=== PATIENT | male | born 2000 | race Caucasian/White ===

== ENCOUNTER 2018-04-16 23:26 | Emergency (ER) | payer OTHER, SELFPAY ==
[2018-04-16 23:32] VITALS: BP 125/79; PULSE 98; RESP 20; TEMP 37.5; O2SAT 99; BMI 20.2
[2018-04-17] MEDS: ONDANSETRON 4 MG/2 ML INJ IV (00:42)
[2018-04-17] MEDS: SODIUM CHLORIDE 0.9% 1,000 ML 1000 ML IV (00:42)
[2018-04-17 00:51] LABS: Add Manual Diff / Slide Review NO; Eosinophils Percent Auto 2.4 % (2-4); Hematocrit 42.6 % (41-53); Hemoglobin 14.6 g/dL (13.5-17.5); Lymphocytes Percent Auto 25.6 % (25-40); Mean Corpuscular HGB Conc 34.2 % (30-36); Mean Corpuscular Hemoglobin 30.3 PG (26-34); Mean Corpuscular Volume 88.6 fL (80-100); Monocytes Percent Auto 12.4 % (3-14); Neutrophils Absolute Auto 4100 /uL (3000-5900); Neutrophils Percent Auto 58.6 % (50-75); Platelet Count 234 X10^3/uL (150-400); Red Blood Cell Count 4.81 X10^6/uL (4.5-5.9); Red Cell Distribution Width 12.8 % (11.6-14.8)
[2018-04-17 00:55] LABS: Blood Urea Nitrogen 8 mg/dL (9-20); Calcium 9.5 mg/dL (8.4-10.2); Carbon Dioxide 29 mmol/L (22-32); Chloride 100 mmol/L (98-107); Estimated Glomerular Filt Rate > 60.0 mL/min (>60); Glucose 91 mg/dL (70-100); HEMOLYSIS < 15 (0-50); Potassium 3.8 mmol/L (3.4-5.1); Sodium 141 mmol/L (137-145)
[2018-04-17] MEDS: ONDANSETRON 4 MG ODT PREPACK 1 BOTTLE MISC (02:11)
[2018-04-17 02:20] VITALS: BP 100/63; PULSE 72; RESP 16; TEMP 36.9; O2SAT 99
--- NOTE | 2018-04-17 07:28 | ED_ITS ---
HPI - Nausea/Vomiting/Diarrhea General Chief complaint: Nausea/Vomiting/Diarrhea Stated complaint: right side pain, dizziness, confused Time Seen by Provider: 04/16/18 23:53 Source: patient and family Mode of arrival: ambulatory Limitations: no limitations History of Present Illness HPI Narrative: 18M, nonsmoker, otherwise healthy patient presents with vague complaints of generally feeling unwell for the past few hours. He states he feels a bit nauseated and weak and complains of some right lower quadrant pain that seems to be worse when he moves. He denies any dysuria, frequency or urgency. He denies any history of the same. He denies any exposure to ill persons or bad food. He routinely smokes marijuana and had some tonight but states it was from the same supply as normal and that is likely not contributing to how he feels. He admits to a low-grade fever MD complaint: nausea and abdominal pain Onset (ago): minute(s) Description of Diarrhea: none Associated Abdominal Pain: Yes Location of pain: RLQ Radiation: diffuse Severity: mild Quality: cramping and aching Relieving factors: none Exacerbating factors: none Associated symptoms: fever/chills, loss of appetite and nausea/vomiting Related Data Allergies Allergy/AdvReac Type Severity Reaction Status Date / Time No Known Drug Allergies Allergy Verified 04/16/18 23:38 Review of Systems Review of Systems All systems reviewed & are unremarkable except as noted in HPI and below Constitutional Denies chills, Reports fever(s), Denies lethargy and Denies weakness Eyes Denies change in vision, Denies eye discharge, Denies irritation and Denies loss of vision ENT Ears, Nose, Mouth, and Throat: Denies change in voice, Denies neck pain and Denies sore throat Cardiovascular Denies chest pain, Denies irregular heart rhythm, Denies lightheadedness, Denies palpitations, Denies dyspnea, Denies dyspnea on exertion and Denies orthopnea Respiratory Denies cough, Denies dyspnea, Denies dyspnea on exertion and Denies wheezing Gastrointestinal Gastrointestinal: Reports abdominal pain, Denies change in bowel habits, Denies diarrhea, Reports nausea and Denies vomiting Genitourinary Denies hematuria, Denies flank pain, Denies urinary incontinence and Denies urinary urgency Musculoskeletal Denies neck pain Integumentary/Breasts Denies pruritus, Denies erythema, Denies rash and Denies wounds Neurologic Denies confusion, Denies loss of vision and Denies weakness Psychiatric Denies anxiety, Denies confusion, Denies depression, Denies homicidal ideation and Denies suicidal ideation Endocrine Denies palpitations Hematologic/Lymphatic Denies easy bruising Allergic/Immunologic Denies wheezing [facility] Social History Smoking Status: Former smoker Exam Narrative Exam Narrative: GENERAL: 18-year-old male in mild distress HEAD: Atraumatic. Normocephalic. No temporal or scalp tenderness. EYES: Pupils equal round and reactive. Extraocular motions intact. No scleral icterus. No injection or drainage. ENT: Nose without bleeding, purulent drainage or septal hematoma. Throat without erythema, tonsillar hypertrophy or exudate. Uvula midline. Airway patent. NECK: Trachea midline. No JVD or lymphadenopathy. Supple, nontender, no meningeal signs. CARDIOVASCULAR: Regular rate and rhythm without workmurmurs, gallops, or rubs. RESPIRATORY: Clear to auscultation. Breath sounds equal bilaterally. No wheezes , rales, or rhonchi. GASTROINTESTINAL: Abdomen soft, mild tenderness without rebound in right lower quadrant, nondistended. No hepato-splenomegaly, or palpable masses. Negative Rovsing's, obturator or psoas sign EXTREMITIES: No clubbing, cyanosis, or edema. No joint tenderness, effusion, or edema noted. BACK: Nontender without deformity or crepitance. No flank tenderness. NEURO: AOx3. SKIN: No rash or erythema. Initial Vital Signs Initial Vital Signs: Vital Signs Temperature 99.5 F 04/16/18 23:32 Pulse Rate 98 H 04/16/18 23:32 Respiratory Rate 20 04/16/18 23:32 Blood Pressure 125/79 04/16/18 23:32 Pulse Oximetry 99 04/16/18 23:32 Course Orders Ordered: ED Orders 04/17/18 00:42 Basic Metabolic Panel Stat Complete Blood Count AUTO DIFF Stat Discontinued Medications Sodium Chloride (Normal Saline 0.9%) 1,000 mls @ 1,000 mls/hr IV BOLUS ONE Stop: 04/17/18 01:13 Last Infusion: 04/17/18 02:05 Dose: 0 mls/hr Admin: 04/17/18 00:42 Dose: 1,000 mls/hr Ondansetron HCl (Zofran) 4 mg IV Q4HR PRN PRN Reason: Nausea And Vomiting Last Admin: 04/17/18 00:42 Dose: 4 mg Ondansetron HCl (Zofran Odt Prepack) 1 bottle MISC SEEINSTR ONE Stop: 04/17/18 02:01 Last Admin: 04/17/18 02:11 Dose: 1 bottle Vital Signs - 8 hr 04/16/18 23:32 04/17/18 02:20 Temperature 99.5 F 98.4 F Pulse Rate 98 H 72 Respiratory Rate 20 16 Blood Pressure 125/79 100/63 Pulse Oximetry 99 99 MDM - Nausea/Vomiting/Diarrhea Medical Records Attestation: I reviewed the patient's medical records. Lab Data Attestation: I reviewed the patient's lab results. Result diagrams: 04/17/18 00:42 04/17/18 00:42 Lab Results 04/17/18 04/17/18 Range/Units 00:42 00:42 WBC 7.0 (4.5-11.0) X10^3/uL RBC 4.81 (4.5-5.9) X10^6/uL Hgb 14.6 (13.5-17.5) g/dL Hct 42.6 (41-53) % MCV 88.6 (80-100) fL MCH 30.3 (26-34) PG MCHC 34.2 (30-36) % RDW 12.8 (11.6-14.8) % Plt Count 234 (150-400) X10^3/uL Neut % (Auto) 58.6 (50-75) % Lymph % (Auto) 25.6 (25-40) % [place] % (Auto) 12.4 (3-14) % Eos % (Auto) 2.4 (2-4) % Baso % (Auto) 1.0 (0-2) % Neut # (Auto) 4100 (7419-4849) /uL Sodium 141 (137-145) mmol/L Potassium 3.8 (3.4-5.1) mmol/L Chloride 100 (98-107) mmol/L Carbon Dioxide 29 (22-32) mmol/L BUN 8 L (9-20) mg/dL Creatinine 0.80 (0.66-1.25) mg/dL Estimated GFR > 60.0 (>60) mL/min BUN/Creatinine Ratio 10.0 (6-22) Glucose 91 (70-100) mg/dL Calcium 9.5 (8.4-10.2) mg/dL Urine Dip Bedside Urine Glucose Negative Bedside Urine Bilirubin - Negative Bedside Urine Ketone - Negative Urine Specific [place] 1.020 Bedside Urine Occult Blood - Negative Bedside Urine pH 6.5 Bedside Urine Protein - Negative Bedside Urine Urobilinogen - Negative Bedside Urine Nitrite - Negative Bedside Urine Leukocytes - Negative Esterase MDM Narrative Medical decision making narrative: 18-year-old male with the extensive bedside discussion with he and parents about the possibility of a very early appendicitis but only 4 hr in a lack of elevated white blood cell count and minor findings on exam it is most reasonable to repeat abdominal exam in 12-24 hours. Patient given return precautions and is verbalized his understanding Discharge Plan Departure Patient Disposition: Home Clinical Impression: Nausea, Abdominal pain Discharge Date/Time: 04/17/18 02:21 Interventions: ED Discharge Assessment Last Done: 04/17/18 02:20 Instructions: Acute Abdominal Pain Activity Restrictions/Additional Instructions: *You have been diagnosed with [ acute abdominal pain with nausea ] *What to do: *Take medications as directed *Follow up with your primary care provider, walk in clinic, or return to the Emergency Department for a re-evaluation in 24 hours *Return to ER immediately if you should have any new, worsening or concerning symptoms, such as [ worsening or more persistent pain, elevated fever over 101 F, persistent vomiting, or other bothersome symptoms]
== END 2018-04-17 02:21 | disposition home or self-care (01) ==
PROVIDERS: Emergency Provider Emergency Medicine
DX: R10.9 Unspecified abdominal pain (principal); R11.0 Nausea
CPT/HCPCS: 36591; 80048; 81003; 85025; 96361; 96374; 99283; 99284; J2405

== ENCOUNTER 2019-04-09 21:39 | Emergency (ER) | payer OTHER, SELFPAY ==
[2019-04-09 21:50] VITALS: BP 131/73; PULSE 79; RESP 16; TEMP 37.1; O2SAT 100
--- NOTE | 2019-04-09 22:51 | ED.WOUNDLAC ---
HPI - Wound/Laceration General Chief Complaint: Wound/Laceration Stated Complaint: LACERATION OF RIGHT SIDE OF CHEST Time Seen by Provider: 04/09/19 21:46 Source: patient Mode of arrival: Ambulatory Limitations: no limitations History of Present Illness HPI narrative: 19-year-old male nonsmoker with noncontributory medical history presents with his mother and a chief complaint of a laceration on the right side of his chest after bumping into some david yesterday evening. He cleaned it immediately is kept a dressing on it. His tetanus will need to be updated. He denies any drainage. He denies other injury is otherwise well and free of complaint Onset (ago): hour(s) Location: chest Body four view annotation: 1. Place: work Patient tetanus UTD: No Context: accidental Associated symptoms: pain Treatments prior to arrival: bandage Related Data Allergies Allergy/AdvReac Type Severity Reaction Status Date / Time No Known Drug Allergies Allergy Verified 04/16/18 23:38 Review of Systems Constitutional Constitutional: Denies chills, Denies fatigue, Denies fever(s), Denies frequent falls, Denies lethargy and Denies weakness Eyes Eyes: Denies change in vision, Denies eye discharge, Denies irritation and Denies loss of vision ENT Ears, Nose, Mouth, and Throat: Denies change in voice, Denies dizziness, Denies neck pain, Denies sore throat and Denies throat swelling Cardiovascular Cardiovascular: Denies chest pain, Denies irregular heart rhythm, Denies lightheadedness, Denies palpitations, Denies dyspnea, Denies dyspnea on exertion and Denies orthopnea Respiratory Respiratory: Denies cough, Denies dyspnea, Denies dyspnea on exertion and Denies wheezing Gastrointestinal Gastrointestinal: Denies abdominal pain, Denies change in bowel habits, Denies diarrhea, Denies nausea and Denies vomiting Genitourinary Genitourinary: Denies hematuria, Denies flank pain, Denies urinary incontinence and Denies urinary urgency Musculoskeletal Musculoskeletal: Denies back pain, Denies muscle weakness, Denies neck pain, Denies numbness and Denies tingling Integumentary/Breasts Skin/Breast: Denies pruritus, Denies erythema, Denies rash and Reports wounds Neurologic Neurologic: Denies behavioral changes, Denies confusion, Denies dizziness, Denies frequent falls, Denies loss of vision, Denies numbness, Denies tingling and Denies weakness Psychiatric Psychiatric: Denies anxiety, Denies behavioral changes, Denies confusion, Denies depression, Denies homicidal ideation and Denies suicidal ideation Endocrine Endocrine: Denies fatigue, Denies flushing and Denies palpitations Hematologic/Lymphatic Hematologic/Lymphatic: Denies easy bruising Allergic/Immunologic Allergic/Immunologic: Denies urticaria, Denies throat swelling and Denies wheezing Patient History Social History Smoking Status: Former smoker alcohol intake frequency: 3 or more drinks per day Substance Use Type: marijuana Exam Narrative Exam Narrative: GEN: AOx3 and in mild distress EYES: Pupils are equal, round, and reactive to light and accommodation. Extraoccular muscles are intact bilaterally. There is no subconjunctival hemorrhage or exudate. CHEST: Lungs are clear to auscultation bilaterally and free of wheezes, rales, or rhonchi. Heart rate is regular rhythm, there are no murmurs, clicks, rubs, or gallops. There is no chest wall tenderness. ABD: Abdomen is soft and nontender. There is no guarding or rebound. Bowel sounds are normal in all 4 quadrants. There is no mass or organomegaly. EXT: Full painless ROM of all extremities with no loss of sensation or strength. SKIN: 3 cm superficial laceration on the right anterior chest, easily closed with sutures. No active bleeding Warm, pink, and dry. No erythema or rash Initial Vital Signs Initial Vital Signs: Vital Signs Temperature 98.7 F 04/09/19 21:50 Pulse Rate 79 04/09/19 21:50 Respiratory Rate 16 04/09/19 21:50 Blood Pressure 131/73 04/09/19 21:50 Pulse Oximetry 100 04/09/19 21:50 Procedures Laceration Repair Laceration 1: Site: chest Side (If applicable): right Size (cm): 3 Description: linear Depth: simple, single layer Local Anesthetic: lidocaine 1% Pre-repair: wound explored Skin layer closed with: nylon Size (cm): 5-0 Number of sutures: 7 Technique: simple, interrupted Course Orders Ordered: Discontinued Medications Diphtheria/Tetanus/Acell Pertussis (Adacel) 0.5 ml IM .ONCE ONE Stop: 04/09/19 23:07 Last Admin: 04/09/19 23:12 Dose: 0.5 ml Documented by: SONIA Lidocaine/Sodium Bicarbonate (Buffered Lidocaine 10 Ml Syr) 10 ml INJ NOW ONE Stop: 04/09/19 22:59 Vital Signs Vital signs: Vital Signs - 8 hr 04/09/19 21:50 Temperature 98.7 F Pulse Rate 79 Respiratory Rate 16 Blood Pressure 131/73 Pulse Oximetry 100 Discharge Plan Departure Patient Disposition: Home Clinical Impression: Laceration Discharge Date/Time: 04/09/19 23:50 Instructions: DI for Laceration Repair Activity Restrictions/Additional Instructions: *You have been diagnosed with [ chest laceration ] *What to do: *Take medications as directed *Follow up with your primary care provider in 2-3 days, call for an appointment. Let them know you were seen in the Emergency Department and that we ask that you be seen in follow up *Return to ER if you should have any new, worsening or concerning symptoms
[2019-04-09] MEDS: TET,DIPH,PERTUSS(ACELL),VAC/PF 0.5 ML SYRINGE IM (23:12)
== END 2019-04-09 23:50 | disposition home or self-care (01) ==
PROVIDERS: Emergency Provider Emergency Medicine
DX: S21.111A Laceration without foreign body of right front wall of thorax without penetration into thoracic cavity, initial encounter (principal); Z23 Encounter for immunization; Y99.0 Civilian activity done for income or pay
CPT/HCPCS: 12002; 90471; 99283; 90715

== ENCOUNTER 2019-11-18 13:16 | Emergency (ER) | payer OTHER, SELFPAY ==
[2019-11-18 13:21] VITALS: BP 142/99; PULSE 77; RESP 14; TEMP 36.6; O2SAT 99
--- NOTE | 2019-11-18 14:47 | ED.WOUNDLAC ---
HPI - Wound/Laceration <Marianne Chun PA-C - Last Filed: 11/18/19 20:29> General Chief Complaint: Wound/Laceration Stated Complaint: laceration on back of head Time Seen by Provider: 11/18/19 13:27 Source: patient Mode of arrival: Ambulatory History of Present Illness HPI narrative: This is a 19-year-old male who presents to the emergency department complaining of a cut to the top and back of his head that he sustained last night around 1 in the morning at home when he stood up quickly and hit the back of his head on the corner of a cabinet. He did lose consciousness. Says that it bled a fair amount but they were able to get it to stop and he went to sleep, and in the morning he showered but he did not wash it or clean it at the time that it happened. Says he has a mild headache that he woke up with this morning but he also notes he was drinking a fair amount last night so he thinks he may just have a hangover. No other injuries, this is an isolated complaint. Related Data Allergies Allergy/AdvReac Type Severity Reaction Status Date / Time No Known Drug Allergies Allergy Verified 04/16/18 23:38 Review of Systems <LUCI Frye Last Filed: 11/18/19 20:29> Review of Systems Narrative: GENERAL: Denies chills, fatigue, malaise, fever, sweats. HEENT: Denies sinus pain, ear pain, sore throat, difficulty swallowing, dizziness. RESPIRATORY: Denies dyspnea, cough, wheezing, hemoptysis, sputum. CARDIOVASCULAR: Denies chest pain, palpitations, orthopnea, edema, GASTROINTESTINAL: Denies nausea, vomiting, abdominal pain, diarrhea, constipation, melena. : Denies dysuria, frequency, incontinence, hematuria, urinary retention. MUSCULOSKELETAL: denies weakness, joint pain, or bony pain SKIN: Positive for laceration on the top left of his scalp. Denies any other rash, skin lesions, or other NEUROLOGIC: Denies weakness, headache, numbness, change in speech, confusion, seizures, incoordination. PSYCHIATRIC: No concerning psychosocial issues. 12 point review of systems is negative except for those stated above Patient History <Marianne Chun PA-C - Last Filed: 11/18/19 20:29> Social History Smoking Status: Former smoker Smoking Status: Former smoker alcohol intake frequency: 3 or more drinks per day Substance Use Type: marijuana Exam <Marianne Chun PA-C - Last Filed: 11/18/19 20:29> Narrative Exam Narrative: GENERAL: 19 year old patient appears stated age. Well-nourished, well-developed patient, in mild distress. HEAD: Atraumatic. Normocephalic. EYES: Pupils equal round and reactive. Extraocular motions intact. No scleral icterus. No injection or drainage. ENT: Nose without bleeding, purulent drainage. Airway patent. NECK: Trachea midline. Non tender CARDIOVASCULAR: Regular rate and rhythm without murmurs, gallops, or rubs. RESPIRATORY: Clear to auscultation. Breath sounds equal bilaterally. No wheezes, rales, or rhonchi. EXTREMITIES: No edema or joint tenderness. BACK: Nontender without deformity or crepitance. No flank tenderness. NEURO: AOx3. SKIN: No rash or erythema of visible areas Initial Vital Signs Initial Vital Signs: Vital Signs Temperature 97.8 F 11/18/19 13:21 Pulse Rate 77 11/18/19 13:21 Respiratory Rate 14 11/18/19 13:21 Blood Pressure 142/99 H 11/18/19 13:21 Pulse Oximetry 99 11/18/19 13:21 <Abril Dumont DO - Last Filed: 11/20/19 07:40> Initial Vital Signs Initial Vital Signs: Vital Signs Temperature 97.8 F 11/18/19 13:21 Pulse Rate 77 11/18/19 13:21 Respiratory Rate 14 11/18/19 13:21 Blood Pressure 142/99 H 11/18/19 13:21 Pulse Oximetry 99 11/18/19 13:21 Procedures <LUCI Frye Last Filed: 11/18/19 20:29> Laceration Repair Laceration 1: Site: scalp (Left superior posterior) Side (If applicable): left Size (cm): 1 Description: stellate Depth: simple, single layer (dermabond) Pre-repair: irrigated extensively and deep structures intact Skin layer closed with: dermabond Course <LUCI Frye Last Filed: 11/18/19 20:29> Vital Signs Vital signs: Vital Signs - 8 hr 11/18/19 13:21 11/18/19 14:57 Temperature 97.8 F Pulse Rate 77 77 Respiratory Rate 14 Blood Pressure 142/99 H 142/87 H Pulse Oximetry 99 97 <Abril Dumont DO - Last Filed: 11/20/19 07:40> Vital Signs Vital signs: Vital Signs - 8 hr 11/18/19 13:21 11/18/19 14:57 Temperature 97.8 F Pulse Rate 77 77 Respiratory Rate 14 Blood Pressure 142/99 H 142/87 H Pulse Oximetry 99 97 MDM - Wound/Laceration <Marianne Chun PA-C - Last Filed: 11/18/19 20:29> Differential Diagnosis Differential diagnosis: Likely laceration and other (nerve injury, vascular injury, closed head injury) Medical Records Attestation: I reviewed the patient's medical records. MDM Narrative Medical decision making narrative: This is a well-appearing 19-year-old who presents with complaint of a cut to the top of the back of his head sustained in late last night/early this morning when he stood up too quickly underneath the corner of a cabinet--bleeding controlled. Differential diagnoses considered include laceration, blood loss, closed head injury, concussion A low suspicion for a concussion or closed head injury and imaging is not pursued. Wound is irrigated and closed with Dermabond. Discussed Primary care follow-up emergency return precautions, all questions answered. Discharge Plan Departure Patient Disposition: Home Clinical Impression: Scalp laceration Qualifiers: Encounter type: initial encounter Qualified Code(s): S01.01XA - Laceration without foreign body of scalp, initial encounter Discharge Date/Time: 11/18/19 14:58 Instructions: How to Care for a Laceration After Repair, DI for Laceration Repair Activity Restrictions/Additional Instructions: You for letting us to be part of your care in the emergency department today. There is no evidence of an emergent or life threatening illness at this time, but follow up with your doctor in 1-2 days is recommended nonetheless to continue to rule out serious underlying causes of your symptoms. Please call the office for an appointment. Please return to the Emergency Department for any worsening or persistent symptoms. Please take medications as directed. As we discussed please do not submerge your head in water for at least the next 48 hours, you may shower but do try to keep the area dry as much as possible for the next 48 hours and do not scrub it for the next few weeks the skin glue that was used on her scalp will gradually flake off on its own. You may care for the area with a bandage if you like or you may leave it open to the air I recommend covering it with for the next few days at least at night when her sleeping. If you do develop vision changes headache, dizziness, lightheadedness, or any other symptoms of concern to you please do not hesitate to seek medical care. I have referred you to [facility] if you need to establish a primary care provider they can help you with this. I do recommend that you follow-up and have this reexamined. Referrals: [facility] [Outside] <Abril Dumont, - Last Filed: 11/20/19 07:40> Cosign ED Attending Shellyature Attestation: I was immediately available in the department for consultation. Documentation has been reviewed. I agree with assessment and plan.
[2019-11-18 14:57] VITALS: BP 142/87; PULSE 77; O2SAT 97
== END 2019-11-18 14:58 | disposition home or self-care (01) ==
PROVIDERS: Emergency Provider Student in an Organized Health Care Education/Training Program
DX: S01.01XA Laceration without foreign body of scalp, initial encounter (principal); W22.8XXA Striking against or struck by other objects, initial encounter
CPT/HCPCS: 99282

== ENCOUNTER 2020-02-03 22:33 | Emergency (ER) | payer OTHER, SELFPAY ==
[2020-02-03 22:42] VITALS: BP 137/96; PULSE 88; RESP 16; TEMP 36.8; O2SAT 99; BMI 21.7
--- NOTE | 2020-02-03 22:52 | DI.RAD.S_ITS ---
PROCEDURE: XR FOOT LT MIN 3V INDICATIONS: pain, swelling TECHNIQUE: 3 views of the foot were acquired. COMPARISON: None. FINDINGS: Bones: No fracture. Dorsal soft tissue swelling. Presumed bone island projects in the base of the 1st metatarsal. IMPRESSION: No fracture. If the patient's symptoms do not improve recommend followup radiographs in 10 days to assess for healing sclerosis/occult injury. Dictated by: Carlos Hogan M.D. on 02/04/2020 at 8:34 Approved by: Carlos Hogan M.D. on 02/04/2020 at 8:48
--- NOTE | 2020-02-03 23:30 | ED.LOWEXIN ---
HPI - Extremity Injury (Lower) General Chief Complaint: Extremity Injury, Lower Stated Complaint: thinks broke big toe of left foot Time Seen by Provider: 02/03/20 22:42 Source: patient Mode of arrival: Ambulatory Limitations: no limitations History of Present Illness HPI Narrative: 19-year-old male here for evaluation of injuries that he sustained to his left foot/great toe. He states this occurred the other day as he was going up a flight of stairs. Had bruising and pain worsening since then. Has been ambulatory. No prior injuries. Has not tried anything for symptoms prior to arrival. Related Data Allergies Allergy/AdvReac Type Severity Reaction Status Date / Time No Known Drug Allergies Allergy Verified 02/03/20 22:50 Review of Systems Constitutional Constitutional: Denies frequent falls and Denies headache(s) ENT Ears, Nose, Mouth, and Throat: Denies vertigo, Denies dizziness and Denies headache(s) Musculoskeletal Comments: Pain and bruising left foot/toe Integumentary/Breasts Comments: Bruising to left foot/toe Neurologic Neurologic: Denies vertigo, Denies dizziness, Denies frequent falls and Denies headache(s) Hematologic/Lymphatic Hematologic/Lymphatic: Denies easy bleeding and Denies easy bruising Patient History Medical History Healthy adult (Acute) Social History Smoking Status: Former smoker Smoking Status: Former smoker alcohol intake frequency: a few times a week Substance Use Type: marijuana Exam Initial Vital Signs Initial Vital Signs: Vital Signs Temperature 98.3 F 02/03/20 22:42 Pulse Rate 88 02/03/20 22:42 Respiratory Rate 16 02/03/20 22:42 Blood Pressure 137/96 H 02/03/20 22:42 Pulse Oximetry 99 02/03/20 22:42 Const General: cooperative and comfortable Limitations: mental status not altered HENSC Head: normal to inspection and normocephalic Cardio Pulses: dorsalis pedis present on the right Skin Other: Bruising located on the dorsum of the left foot distal and over the left great toe. Extrem Other: Tenderness to palpation over the left great toe on the dorsum the left foot. Left ankle unremarkable. Course Orders Ordered: ED Orders 02/03/20 22:52 XR foot LT min 3V Stat Vital Signs Vital signs: Vital Signs - 8 hr 02/03/20 22:42 Temperature 98.3 F Pulse Rate 88 Respiratory Rate 16 Blood Pressure 137/96 H Pulse Oximetry 99 MDM - Extremity Injury (Lower) Imaging Data Extremity x-ray #1: Attestation: I personally reviewed and interpreted this imaging study as follows: My Impression: No fractures or dislocations MDM Narrative Medical decision making narrative: Neurovascularly intact, no fractures noted on the x-rays. Discussed these results with the patient. Discussed rice and elevation. He expressed understanding and agreement. Discharge Plan Departure Patient Disposition: Home Clinical Impression: Contusion of foot, right Instructions: How To Perform RICE (Rest, Ice, Compress, Elevate) Activity Restrictions/Additional Instructions: Keep your foot elevated and ice over the area. You have no restrictions on your activities.
== END 2020-02-03 23:39 | disposition home or self-care (01) ==
PROVIDERS: Emergency Provider Emergency Medicine
DX: S90.31XA Contusion of right foot, initial encounter (principal)
CPT/HCPCS: 73630; 99283

== ENCOUNTER 2022-10-27 11:06 | Emergency (ER) | payer OTHER, SELFPAY ==
[2022-10-27 11:17] VITALS: BP 131/94; PULSE 70; RESP 16; TEMP 37; O2SAT 97; BMI 20.9
--- NOTE | 2022-10-27 12:00 | DI.CT.S_ITS ---
PROCEDURE: CT HEAD/BRAIN WO CON INDICATIONS: headache x 4 days, no trauma or h/o HAs TECHNIQUE: Noncontrast 4.5 mm thick angled axial sections acquired from the foramen magnum to the vertex, with coronal and sagittal reformats. For radiation dose reduction, the following was used: automated exposure control, adjustment of mA and/or kV according to patient size. COMPARISON: None. FINDINGS: Image quality: Excellent. CSF spaces: Basal cisterns are patent. No extra-axial fluid collections. Ventricles are normal in size and shape. Brain: No midline shift. No intracranial masses or hemorrhage. Garrett-white matter interface is normal. Skull and face: Calvarium and visualized facial bones are intact, without suspicious lesions. Sinuses: Moderate mucosal thickening can be seen throughout the paranasal sinuses. No abnormal fluid is seen within the mastoid air cells. IMPRESSION: No significant intracranial abnormality is identified on this noncontrast head CT. No acute intracranial hemorrhage is seen. Extensive paranasal sinus disease can be seen. Dictated by: Lino Rosales M.D. on 10/27/2022 at 12:01 Approved by: Lino Rosales M.D. on 10/27/2022 at 12:02
--- NOTE | 2022-10-27 12:19 | ED_ITS ---
HPI - Headache General Chief Complaint: Headache Stated Complaint: headache for 5 days, nausea Time Seen by Provider: 10/27/22 11:32 Mode of arrival: Ambulatory History of Present Illness HPI Narrative: Patient here for complaints of headache that is right right orbital and constant for the past 5 days. Has had nausea but no vomiting. Has had light and sound sensitivity. No prior history of migraine headaches. No relief with Tylenol or ibuprofen at home. No known injury. No recent illness. No neck pain. No personal history of migraine headaches or in the family or any brain tumors or brain aneurysms. Patient is in no distress. Denies any watering of the eye. Has had blurry vision but no double vision. Patient states headache started slowly. Not acute sudden onset. Not thunderclap onset. 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 HEENT: negative sinus pain, ear pain, sore throat RESPIRATORY: negative dyspnea, cough CARDIOVASCULAR: negative chest pain, palpitations GASTROINTESTINAL: Positive nausea, negative vomiting, abdominal pain : negative dysuria, frequency, hematuria MUSCULOSKELETAL: negative muscle or bony pain SKIN: negative rash, skin lesions NEUROLOGIC: negative weakness, numbness, positive headache, positive blurry vision ROS Unobtainable: All systems reviewed & are unremarkable except as noted in HPI and below Patient History Medical History (Updated 10/27/22 @ 13:06 by Ranjith Bennett MD) Healthy adult Social History Smoking Status: Former smoker Smoking Status: Former smoker alcohol intake frequency: a few times a week Substance Use Type: does not use Exam Narrative Exam Narrative: GENERAL: in no distress, not toxic not dyspneic HEAD: Normocephalic. EYES: Pupils equal round ENT: Mucous membranes moist. NECK: Trachea midline. CARDIOVASCULAR: Regular rate and rhythm without murmurs RESPIRATORY: Clear to auscultation. Breath sounds equal bilaterally. No wheezes, rales, or rhonchi. GASTROINTESTINAL: Abdomen soft, non-tender EXTREMITIES: No gross deformities. BACK: No flank tenderness. NEURO: AOx4. Clear speech no facial droop light touch intact to bilateral face and hands with strong equal cloth boil off machine operator. Steady self gait no ataxia. No foot drop. Strong bilateral cloth boil off machine operator and patellar reflexes and ankle flexion and extension. Negative pronator drift SKIN: Warm and dry PSYCH: Not anxious, is cooperative Initial Vital Signs Initial Vital Signs: Vital Signs Temperature 98.6 F 10/27/22 11:17 Pulse Rate 70 10/27/22 11:17 Respiratory Rate 16 10/27/22 11:17 Blood Pressure 131/94 H 10/27/22 11:17 Pulse Oximetry 97 10/27/22 11:17 Oxygen Delivery Method Room Air 10/27/22 11:17 Course Orders Ordered: Discontinued Medications Dexamethasone (Dexamethasone 10 Mg/Ml Vial) 10 mg IV NOW ONE Stop: 10/27/22 12:00 Last Admin: 10/27/22 12:03 Dose: Not Given Documented By: ROBERTO Diphenhydramine HCl (Diphenhydramine 50 Mg/Ml Vial) 25 mg IV NOW ONE Stop: 10/27/22 12:00 Last Admin: 10/27/22 12:03 Dose: Not Given Documented By: ROBERTO Sodium Chloride (Normal Saline 0.9%) 1,000 mls @ 1,000 mls/hr IV BOLUS ONE Stop: 10/27/22 12:58 Last Admin: 10/27/22 12:04 Dose: Not Given Documented By: ROBERTO Metoclopramide HCl (Metoclopramide 10 Mg/2 Ml Inj) 10 mg IV NOW ONE Stop: 10/27/22 12:02 Last Admin: 10/27/22 12:04 Dose: Not Given Documented By: ROBERTO Vital Signs Vital signs: Vital Signs - 8 hr 10/27/22 11:17 Temperature 98.6 F Pulse Rate 70 Respiratory Rate 16 Blood Pressure 131/94 H Pulse Oximetry 97 Oxygen Delivery Method Room Air MDM - Headache Imaging Data CT scan - head: Radiologist's Impression: [address] [address] [address] Scan Report Signed Patient: Serge Hull I MR#: [id number] : 2000 Acct:[id number] Age/Sex: 22 / M Date of Service: 10/27/22 Loc: ED Accession Number: [id number] ?? Procedure: CT head/brain wo con Ordering Provider: Ranjith Bennett MD PROCEDURE:? CT HEAD/BRAIN WO CON ? INDICATIONS:? headache x 4 days, no trauma or h/o HAs ? TECHNIQUE:? Noncontrast 4.5 mm thick angled axial sections acquired from the foramen magnum to the vertex, with coronal and sagittal reformats.? For radiation dose reduction, the following was used:? automated exposure control, adjustment of mA and/or kV according to patient size.? ? COMPARISON:? None. ? FINDINGS:? Image quality:? Excellent.? ? CSF spaces:? Basal cisterns are patent.? No extra-axial fluid collections.? Ventricles are normal in size and shape.? ? Brain:? No midline shift.? No intracranial masses or hemorrhage.? Garrett-white matter interface is normal.? ? Skull and face:? Calvarium and visualized facial bones are intact, without suspicious lesions.? ? Sinuses:? Moderate mucosal thickening can be seen throughout the paranasal sinuses. No abnormal fluid is seen within the mastoid air cells. ? ? IMPRESSION:? No significant intracranial abnormality is identified on this noncontrast head CT. ? No acute intracranial hemorrhage is seen.? ? Extensive paranasal sinus disease can be seen. ? ? Dictated by: Lino Rosales M.D. on 10/27/2022 at 12:01 ? ? Approved by: Lino Rosales M.D. on 10/27/2022 at 12:02 ? [facility] Narrative Medical decision making narrative: Patient here for complaints of headache that is right right orbital and constant for the past 5 days. Has had nausea but no vomiting. Has had light and sound sensitivity. No prior history of migraine headaches. No relief with Tylenol or ibuprofen at home. No known injury. No recent illness. No neck pain. No personal history of migraine headaches or in the family or any brain tumors or brain aneurysms. Patient is in no distress. Denies any watering of the eye. Has had blurry vision but no double vision. Patient states headache started slowly. Not acute sudden onset. Not thunderclap onset. Patient works outdoors [employer] but he states he has been keeping hydrated during this hot weather After history and exam CBC CMP Reglan Benadryl IV access normal saline CT head [facility] CC: Right retro-orbital headache Complicating co-morbidities: None Data collected from: Patient Medical records reviewed: No recent visits for this complaint Differential considered: Includes but not limited to cluster headache migraine headache tension headache dehydration brain tumor brain aneurysms intracranial bleed Exam documented above, pertinent findings include: No photophobia no meningeal signs no neck pain Lab Test results independently reviewed as above. Pertinent findings: None indicated at this time. Patient headache resolved with oxygen therapy Imaging studies independently reviewed: CT head no acute process Treatments: Non-rebreather oxygen therapy, this may be cluster headache. Patient originally does not want laboratory studies or IV access Re-evaluations: 1:03 p.m.. Patient is smiling. Patient states the oxygen therapy has helped him significantly. He was a 11/29. He is currently 07/[address] scan imaging is pending results and he would like to be discharged home. Return precautions reviewed with him. Primary care referral given to him as well. At this time no medications prescriptions indicated. Reviewed with him likely cluster headache. He does recall now in the past he is had right retro-orbital headache off and on. 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 Discussion: Appropriate for discharge home. No laboratory studies indicated. Patient's symptoms resolved with oxygen therapy. No medications indicated otherwise. No prescriptions indicated. Work note provided. Return precautions reviewed. Primary care referral given. He desires discharge home. Diagnosis: Cluster headache Discharge Plan Departure Patient Disposition: Home Clinical Impression: Cluster headache syndrome, not intractable Instructions: DI for Cluster Headache Activity Restrictions/Additional Instructions: Return if worse if any questions or concerns. Please call primary care clinic for office re-evaluation a week. Your likely developing cluster headaches. Treatment for this is oxygen therapy as you had today with significant improvement. Call provided primary care referral phone number to establish family doctor. Call [phone]. Return if worse if any questions or concerns. Work note has been provided for you. CT scan imaging does show some sinus congestion. 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 Referrals: Miscellaneous,Doctor[facility] [Primary Care Provider] - Stand Alone Forms: Patient Portal/API, Work Release Note
[2022-10-27 13:18] VITALS: BP 131/79; PULSE 60; RESP 16; O2SAT 99
== END 2022-10-27 13:20 | disposition home or self-care (01) ==
PROVIDERS: Emergency Provider Emergency Medicine
DX: G44.009 Cluster headache syndrome, unspecified, not intractable (principal)
CPT/HCPCS: 70450; 99283; 99284